=== PATIENT | male | born 2000 ===

== ENCOUNTER 2019-02-28 14:28 | Emergency (ER) | payer OTHER ==
[2019-02-28] MEDS ORDERED: Fluorescein Sodium TOPICAL* 1 MG TEST STRIP OPHTHALMIC ONE (15:21)
[2019-02-28] MEDS ORDERED: Tetracaine 0.5% OPTH.SOL 4 ML* 1 DROP BTL BOTH EYES SCH (15:30)
[2019-02-28] MEDS ORDERED: Erythromycin OPTH OINT* APPLIC OINT LEFT EYE ONE (15:47)
[2019-02-28 16:23] VITALS: BP 108/63
--- NOTE | 2019-02-28 16:26 | ED ---
Throat Pain/Nasal Congestion - HPI Summary HPI Summary: Patient is a 18-year-old male who presents emergency department for a left eye injury that occurred about 2 hours ago. Patient is a student at [employer] and is difficult for a [employer] match. Patient states his opponents struck his left eye with their toe. Patient states he initially had blurry vision which has resolved. No other injuries were sustained. Patient denies loss of consciousness. The ER patient has mild irritation to his left eye otherwise asymptomatic. Symptoms are mild in severity. No current modifying factors. Past medical history. - History of Current Complaint Chief Complaint: EDEyeProblem Time Seen by Provider: 02/28/19 15:20 Hx Obtained From: Patient - Allergies/Home Medications Allergies/Adverse Reactions: Allergies Allergy/AdvReac Type Severity Reaction Status Date / Time No Known Allergies Allergy Verified 02/28/19 14:44 Home Medications: Home Medications NK [No Home Medications Reported] 02/28/19 [History Confirmed 02/28/19] PMH/Surg Hx/FS Hx/Imm Hx Previously Healthy: Yes Infectious Disease History: No Infectious Disease History: Denies: Traveled Outside the [place] in Last 30 Days - Family History Known Family History: Positive: Non-Contributory - Social History Occupation: Student Lives: Dormitory/Roommates Alcohol Use: None Substance Use Type: Reports: None Smoking Status (MU): Never Smoked Tobacco Review of Systems Positive: Blurred Vision, Erythema. Negative: Photophobia, Drainage ENT: Negative Negative: Epistaxis Neurological: Negative Negative: Headache, Weakness, Paresthesia, Numbness, Syncope All Other Systems Reviewed And Are Negative: Yes Physical Exam Triage Information Reviewed: Yes Vital Signs On Initial Exam: Initial Vitals Temp Pulse Resp BP Pulse Ox 98.2 F 89 16 120/73 98 02/28/19 14:38 02/28/19 14:38 02/28/19 14:38 02/28/19 14:38 02/28/19 14:38 Vital Signs Reviewed: Yes Appearance: Positive: Well-Appearing - Pt. sitting on bed in NAD. Friend present. Skin: Positive: Warm, Dry Head/Face: Positive: Normal Head/Face Inspection, Other - No bony tenderness. Eyes: Positive: Normal, EOMI - without pain or entrapement., BLAIR, Other: - Small subconjuctival hemorrhage noted to lateral aspect of eye. Anterior chamber is clear. No hyphema. Neck: Positive: Supple, Nontender Neurological: Positive: Normal, CN Intact II-III Psychiatric: Positive: Normal Procedures - Sedation Patient Received Moderate/Deep Sedation with Procedure: No Diagnostics - Vital Signs Vital Signs Temp Pulse Resp BP Pulse Ox 02/28/19 14:38 98.2 F 89 16 120/73 98 - Laboratory Lab Statement: Any lab studies that have been ordered have been reviewed, and results considered in the medical decision making process. EENT Course/Dx - Course Course Of Treatment: Patient presented with mild injury. Visual acuity normal as documented. No signs of head injury or facial fracture. Patient is a small subconjunctival hemorrhage and corneal abrasion on exam. Patient dispensed erythromycin ointment to use 3 times a day times one week. Advised patient to call [facility] tomorrow for close follow-up and ophthalmology referral within one week for recheck. Return to ER symptoms change or worsen. Patient understands and agrees with plan. - Differential Diagnoses Differential Diagnoses: Abrasion, Fracture - Diagnoses Provider Diagnoses: Subconjunctival hemorrhage, Corneal abrasion Discharge ED - Sign-Out/Discharge Documenting (check all that apply): Patient Departure - Discharge Plan Condition: Good Disposition: HOME Patient Education Materials: Subconjunctival Hemorrhage (ED), Corneal Abrasion (ED) Referrals: Ian Herrera MD [Medical Doctor] - Additional Instructions: Please follow up with an eye doctor within one week for recheck Use antibiotic ointment to left eye every 8 hours x 1 week Return to ER if symptoms change or worsen - Billing Disposition and Condition Condition: GOOD Disposition: Home
== END 2019-02-28 15:58 | disposition home or self-care (01) ==
LOC: ED 14:28
DX: H11.32 Conjunctival hemorrhage, left eye (principal); S05.02XA Injury of conjunctiva and corneal abrasion without foreign body, left eye, initial encounter; X58.XXXA Exposure to other specified factors, initial encounter; Y93.75 Activity, martial arts; Y92.9 Unspecified place or not applicable
CPT/HCPCS: 99282; A9270-GY